=== PATIENT | male | born 1945 | race Caucasian/White ===

== ENCOUNTER 2019-11-27 09:11 | Outpatient (CLI) | payer MEDICARE, SELFPAY ==
--- NOTE | 2019-11-27 08:30 | DI.RAD_ITS ---
EXAM: XR KNEE LT 3V AP,LAT,SAMARA CLINICAL HISTORY: Pain. TECHNIQUE: 2D digital imaging was performed. COMPARISON: RIGHT KNEE 3 VIEWS from 10/04/2013 FINDINGS: BONES: No acute fracture is present. No bony destructive lesion is seen. JOINTS: There is mild medial femoral tibial joint space narrowing and mild periarticular spurring. T here is more prominent spurring involving the patellofemoral joint which also shows mild joint space narrowing. There is spurring at the quadriceps insertion on the patella.. No joint effusion is seen . SOFT TISSUE: Normal. IMPRESSION: Moderate degenerative changes. DATA REPOSITORY: RADIATION DOSE DELIVERED:
== END 2019-11-27 09:31 ==
PROVIDERS: PCP Family Medicine; Referring Provider Family Medicine; Visit Provider Student in an Organized Health Care Education/Training Program
DX: M25.562 Pain in left knee (principal); M17.12 Unilateral primary osteoarthritis, left knee; X50.9XXA Other and unspecified overexertion or strenuous movements or postures, initial encounter; I10 Essential (primary) hypertension
CPT/HCPCS: 20610; 73562; 99204; J1040

== ENCOUNTER 2025-06-20 08:53 | Outpatient (CLI) | payer OTHER, SELFPAY ==
--- NOTE | 2025-06-20 12:55 | DI.MRI_ITS ---
Exam(s) MR LOWER JOINT RT WO EXAM: MR LOWER JOINT RT WO CLINICAL HISTORY: M25.569,M23.91 R KNEE PAIN, internal derangement RT knee,[id number]. TECHNIQUE: Multiplanar multisequence MRI was performed. COMPARISON: CR XR KNEE 3 VIEW RIGHT from 03/07/2025 FINDINGS: BONES: There is no fracture or contusion pattern. JOINTS: In the medial femoral tibial joint, there is loss of the articular cartilage overlying both the femoral condyle and the medial tibial plateau. There is loss of are the articular cartilage overlying the medial patellar facet. Osteophytes are seen arising from both the medial lateral femoral tibial joint. There is a small joint effusion. There is a ganglion cyst arising from the proximal tibial fibular joint. TENDONS: Extensor mechanism: Unremarkable. Medial retinaculum: Unremarkable. Lateral retinaculum: Unremarkable. Popliteus: Unremarkable. MUSCLES: Unremarkable. MENISCI: There is a tear of the posterior horn of the medial meniscus. There is degeneration seen in the body and posterior horn of the medial meniscus. The lateral meniscus is unremarkable. SOFT TISSUES: There is mild edema seen in the soft tissues particularly anteriorly. There is a small fluid collection anterior to the extensor tendon which may represent a bursitis. LIGAMENTS: Anterior Cruciate: Unremarkable. Posterior Cruciate: Unremarkable. Medial Collateral:Unremarkable. Lateral Collateral: Unremarkable. OTHER: IMPRESSION: 1. Tear of the posterior horn of the medial meniscus with underlying degeneration present. 2. 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 3. Small joint effusion. 4. No evidence of a ligament tear. DATA REPOSITORY:
== END 2025-06-20 09:13 ==
PROVIDERS: PCP Family Medicine; Visit Provider Student in an Organized Health Care Education/Training Program
DX: M25.561 Pain in right knee (principal); M23.91 Unspecified internal derangement of right knee
CPT/HCPCS: 73721